=== PATIENT | male | born 1950 | race African-American/Black ===

== ENCOUNTER 2019-03-18 09:12 | Inpatient (IN) ==
[2019-03-18] MEDS ORDERED: DICYCLOMINE 20 MG/2 ML AMP IM ONE (09:28)
[2019-03-18] MEDS ORDERED: ONDANSETRON 4 MG/2 ML VIAL IV STA (09:28)
[2019-03-18 10:11] LABS: Basophils # 0.1 10*3/uL (0.0-0.2); Basophils % 1.2 % (0.0-0.8); Eosinophils # 0.3 10*3/uL (0.0-0.87); Eosinophils % 4.9 % (0.00-10.9); Hematocrit 41.6 VOL% (42.0-52.0); Hemoglobin 14.8 GM/DL (14.0-18.0); Immature Granulocytes % 0.2 %; Immature Granulocytes Absolute 0.01 #; Lymphocytes # 2.1 10*3/uL (1.4-4.0); Lymphocytes % 35.1 % (21.2-54.2); Mean Corpuscular HGB Conc 35.6 GM/DL (32-36); Mean Corpuscular Volume 90.8 FL (87-102); Mean Platelet Volume 8.4 FL (9.6-12.0); Monocytes % 9.9 % (1.7-12.7); Neutrophils % 48.7 % (38.7-73.9); Platelet Count 246 T/CUMM (130-400); Red Blood Count 4.58 MC/CUMM (3.8-5.5); Red Cell Distribution Width 12.5 % (9.3-17.3)
[2019-03-18 10:21] LABS: INR 0.9; PT Patient Result 10.3 SECS (9.6-12.2); Partial Thromboplastin Time 29.3 SECS (20.8-36.0)
[2019-03-18 10:43] LABS: Alanine Aminotransferase 20 U/L (16-61); Albumin 3.6 G/DL (3.4-5.0); Alkaline Phosphatase 101 U/L (45-117); Aspartate Amino Transferase 13 U/L (0-37); Blood Urea Nitrogen 10 MG/DL (7-18); Calcium 8.8 MG/DL (8.5-10.1); Estimated Glom Filtration Rate 87 ML/MIN; Glucose 107 MG/DL (74-106); Osmolality,Calculated 277.4 MOS/KG (273-304); Total Protein 7.1 G/DL (6.4-8.3); Troponin I < 0.015 NG/ML (0.00-0.045)
[2019-03-18] MEDS ORDERED: ONDANSETRON 4 MG/2 ML VIAL IV PRN (11:40)
[2019-03-18] MEDS ORDERED: ACETAMINOPHEN 500 MG TABLET PO PRN (11:40)
[2019-03-18] MEDS ORDERED: ALUM/MAG/SIMETH/LIDO VISC 1:1 30 ML BOTTLE PO PRN (13:11)
[2019-03-18] MEDS: PANTOPRAZOLE 40 MG TABLET PO SCH (20:30)
[2019-03-19 05:31] LABS: Basophils # 0.1 10*3/uL (0.0-0.2); Eosinophils # 0.3 10*3/uL (0.0-0.87); Eosinophils % 5.9 % (0.00-10.9); Hematocrit 42.1 VOL% (42.0-52.0); Hemoglobin 14.7 GM/DL (14.0-18.0); Immature Granulocytes % 0.2 %; Immature Granulocytes Absolute 0.01 #; Lymphocytes # 2.1 10*3/uL (1.4-4.0); Lymphocytes % 42.5 % (21.2-54.2); Mean Corpuscular HGB Conc 34.9 GM/DL (32-36); Mean Corpuscular Volume 91.9 FL (87-102); Mean Platelet Volume 8.7 FL (9.6-12.0); Monocytes % 10.4 % (1.7-12.7); Platelet Count 256 T/CUMM (130-400); Red Blood Count 4.58 MC/CUMM (3.8-5.5); Red Cell Distribution Width 12.4 % (9.3-17.3); White Blood Count 4.9 T/CUMM (4-12)
[2019-03-19 05:52] LABS: Calcium 8.7 MG/DL (8.5-10.1); Osmolality,Calculated 275.7 MOS/KG (273-304)
[2019-03-19] MEDS: PANTOPRAZOLE 40 MG TABLET PO SCH (08:47)
[2019-03-19] MEDS ORDERED: PANTOPRAZOLE 40 MG TABLET PO SCH (09:00)
[2019-03-19] MEDS ORDERED: amLODIPine 5 MG TABLET PO SCH ×2 (09:00)
[2019-03-19] MEDS ORDERED: ASPIRIN CHEW 81 MG TABLET PO SCH (09:00)
[2019-03-19 10:42] LABS: Risk Ratio 6.94; VLDL CHOLESTEROL 46.8 MG/DL
[2019-03-19] MEDS ORDERED: BISACODYL 5 MG TABLET PO PRN (11:53)
[2019-03-19 13:45] LABS: Apearance,Urine CLEAR (Clear); Bilirubin,Urine Negative (Negative); Blood, Urine Negative (Negative); Glucose,Urine (UA) Negative (Negative); Ketones,Urine Negative (Negative); Nitrite,Urine Negative (Negative); Protein,Urine Negative; RBC,Urine <1 /HPF (0-4); Urine Color Colorless (Yellow); Urine Specific Gravity 1.002 (1.001-1.035); Urine Urobilinogen < 2.0 EU/DL (0.2-1.0); WBC,Urine <1 /HPF (0-6)
[2019-03-19] MEDS: amLODIPine 5 MG TABLET PO SCH (14:26)
[2019-03-19] MEDS: ASPIRIN CHEW 81 MG TABLET PO SCH (14:26)
[2019-03-20 06:05] LABS: Basophils % 0.8 % (0.0-0.8); Eosinophils # 0.3 10*3/uL (0.0-0.87); Eosinophils % 4.8 % (0.00-10.9); Hematocrit 39.4 VOL% (42.0-52.0); Hemoglobin 13.8 GM/DL (14.0-18.0); Immature Granulocytes % 0.2 %; Immature Granulocytes Absolute 0.01 #; Lymphocytes # 2.3 10*3/uL (1.4-4.0); Lymphocytes % 45.2 % (21.2-54.2); Mean Corpuscular Volume 91.8 FL (87-102); Mean Platelet Volume 8.7 FL (9.6-12.0); Monocytes % 10.1 % (1.7-12.7); Neutrophils % 38.9 % (38.7-73.9); Platelet Count 244 T/CUMM (130-400); Red Blood Count 4.29 MC/CUMM (3.8-5.5); Red Cell Distribution Width 12.4 % (9.3-17.3); White Blood Count 5.2 T/CUMM (4-12)
[2019-03-20 06:29] LABS: Albumin 3.2 G/DL (3.4-5.0); Bilirubin,Total 1.1 MG/DL (0.2-1.0); Calcium 8.5 MG/DL (8.5-10.1); Osmolality,Calculated 281.3 MOS/KG (273-304); Total Protein 6.5 G/DL (6.4-8.3)
[2019-03-20] MEDS: amLODIPine 5 MG TABLET PO SCH (09:38)
[2019-03-20] MEDS: ASPIRIN CHEW 81 MG TABLET PO SCH (09:38)
[2019-03-20] MEDS: PANTOPRAZOLE 40 MG TABLET PO SCH ×2 (09:40→21:17)
[2019-03-21 05:35] LABS: Basophils % 0.8 % (0.0-0.8); Eosinophils # 0.3 10*3/uL (0.0-0.87); Eosinophils % 5.3 % (0.00-10.9); Hematocrit 40.1 VOL% (42.0-52.0); Hemoglobin 14.2 GM/DL (14.0-18.0); Immature Granulocytes % 0.2 %; Immature Granulocytes Absolute 0.01 #; Lymphocytes # 1.8 10*3/uL (1.4-4.0); Lymphocytes % 33.7 % (21.2-54.2); Mean Corpuscular HGB Conc 35.4 GM/DL (32-36); Mean Corpuscular Volume 91.3 FL (87-102); Mean Platelet Volume 8.7 FL (9.6-12.0); Monocytes % 10.9 % (1.7-12.7); Neutrophils % 49.1 % (38.7-73.9); Platelet Count 241 T/CUMM (130-400); Red Blood Count 4.39 MC/CUMM (3.8-5.5); Red Cell Distribution Width 12.5 % (9.3-17.3); White Blood Count 5.3 T/CUMM (4-12)
[2019-03-21] MEDS: amLODIPine 5 MG TABLET PO SCH (08:14)
[2019-03-21] MEDS: ASPIRIN CHEW 81 MG TABLET PO SCH (08:14)
[2019-03-21] MEDS: PANTOPRAZOLE 40 MG TABLET PO SCH ×2 (08:14→20:15)
[2019-03-21] MEDS ORDERED: amLODIPine 5 MG TABLET PO SCH (08:20)
[2019-03-22] MEDS ORDERED: amLODIPine 5 MG TABLET PO SCH (03:26)
[2019-03-22 08:22] VITALS: BP 144/85
[2019-03-22] MEDS: PANTOPRAZOLE 40 MG TABLET PO SCH (08:59)
[2019-03-22] MEDS: ASPIRIN CHEW 81 MG TABLET PO SCH (09:05)
== END 2019-03-22 11:58 | disposition home or self-care (01) | DRG 437 ==
LOC: N.EDINP 09:12 → N.ED 09:12 → N.EDINP 12:27 → N.2W 12:46 → N.3E 15:15
PROVIDERS: ADMIT Internal Medicine; ATTEND Internal Medicine

== ENCOUNTER 2020-06-24 08:25 | Inpatient (IN) ==
[2020-06-24] MEDS ORDERED: SODIUM CHLORIDE 0.9% 1,000 ML IV STA (09:08)
[2020-06-24] MEDS ORDERED: ACETAMINOPHEN 500 MG TABLET PO STA (09:39)
[2020-06-24 09:53] LABS: Basophils % 0.4 % (0.0-0.8); Eosinophils # 0.1 10*3/uL (0.0-0.87); Eosinophils % 1.2 % (0.00-10.9); Hematocrit 23.7 VOL% (42.0-52.0); Hemoglobin 8.5 GM/DL (14.0-18.0); Immature Granulocytes % 0.4 %; Immature Granulocytes Absolute 0.02 #; Lymphocytes # 0.2 10*3/uL (1.4-4.0); Lymphocytes % 4.2 % (21.2-54.2); Mean Corpuscular HGB Conc 35.9 GM/DL (32-36); Mean Corpuscular Volume 90.5 FL (87-102); Mean Platelet Volume 11.2 FL (9.6-12.0); Monocytes % 10.5 % (1.7-12.7); Neutrophils % 83.3 % (38.7-73.9); Platelet Count 116 T/CUMM (130-400); Red Blood Count 2.62 MC/CUMM (3.8-5.5); Red Cell Distribution Width 16.8 % (9.3-17.3)
[2020-06-24 10:11] LABS: Albumin 2.8 G/DL (3.4-5.0); Bilirubin,Total 1.4 MG/DL (0.2-1.0); Calcium 8.6 MG/DL (8.5-10.1); Osmolality,Calculated 286.1 MOS/KG (273-304); Potassium 3.7 MMOL/L (3.5-5.1); Total Protein 6.1 G/DL (6.4-8.2)
[2020-06-24] MEDS ORDERED: ONDANSETRON 4 MG/2 ML VIAL IV ONE (10:18)
[2020-06-24] MEDS ORDERED: HYDROmorphone 2 MG/1 ML VIAL IV STA (10:18)
[2020-06-24] MEDS ORDERED: PIPERACILLIN/TAZOBACTAM 3,375 MG in SODIUM CHLORIDE 0.9% 100 ML IV STA ×2 (10:40→10:50)
[2020-06-24 11:19] LABS: INR 1.4; PT Patient Result 15.4 SECS (9.8-11.9)
[2020-06-24] MEDS ORDERED: ENOXAPARIN 30 MG/0.3 ML SYRINGE SUBCUT STA (11:46)
[2020-06-24] MEDS ORDERED: ONDANSETRON 4 MG/2 ML VIAL IV PRN (11:50)
[2020-06-24] MEDS ORDERED: ENOXAPARIN 100 MG/ML SYRINGE SUBCUT SCH (12:00)
[2020-06-24] MEDS ORDERED: PIPERACILLIN/TAZOBACTAM 3,375 MG in SODIUM CHLORIDE 0.9% 50 ML IV SCH (12:00)
[2020-06-24] MEDS ORDERED: ENOXAPARIN 60 MG/0.6 ML SYRINGE ONE (12:06)
[2020-06-24] MEDS ORDERED: PIPERACILLIN/TAZOBACTAM 3.375 MG in SODIUM CHLORIDE 0.9% 100 ML IV ONE (12:30)
[2020-06-24] MEDS: SODIUM CHLORIDE 0.9% 1,000 ML IV SCH (14:09)
[2020-06-24] MEDS: HYDROmorphone 2 MG/1 ML VIAL IV PRN ×2 (14:45→19:30)
[2020-06-24] MEDS: DOCUSATE SODIUM 100 MG CAPSULE PO SCH (20:36)
[2020-06-24] MEDS: ENOXAPARIN 60 MG/0.6 ML SYRINGE SUBCUT SCH (20:37)
[2020-06-24] MEDS: PIPERACILLIN/TAZOBACTAM 3,375 MG in SODIUM CHLORIDE 0.9% 100 ML IV SCH (20:38)
[2020-06-24] MEDS: PIPERACILLIN/TAZOBACTAM 3.375 MG in SODIUM CHLORIDE 0.9% 100 ML IV SCH ×2 (20:45→21:08)
[2020-06-24 22:33] LABS: Bilirubin,Urine Negative (Negative); Blood, Urine Negative (Negative); Glucose,Urine (UA) Negative (Negative); Ketones,Urine Negative (Negative); Nitrite,Urine Negative (Negative); Protein,Urine 30 MG/DL; RBC,Urine 1 /HPF (0-4); Urine Appearance CLEAR (Clear); Urine Color Yellow (Yellow); Urine Urobilinogen < 2.0 EU/DL (0.2-1.0)
[2020-06-24 22:40] LABS: Urine Specific Gravity 1.012 (1.001-1.035)
[2020-06-24] MEDS ORDERED: oxyCODONE IR 5 MG TABLET PO PRN (22:53)
[2020-06-24] MEDS ORDERED: ALBUTEROL/IPRATROPIUM 3 ML NEB RESP TX PRN (22:56)
[2020-06-25] MEDS: HYDROmorphone 2 MG/1 ML VIAL IV PRN ×4 (01:29→15:57)
[2020-06-25] MEDS: PIPERACILLIN/TAZOBACTAM 3,375 MG in SODIUM CHLORIDE 0.9% 100 ML IV SCH ×3 (06:18→22:32)
[2020-06-25 07:13] LABS: Basophils % 0.2 % (0.0-0.8); Eosinophils # 0.1 10*3/uL (0.0-0.87); Eosinophils % 0.9 % (0.00-10.9); Hematocrit 24.9 VOL% (42.0-52.0); Hemoglobin 8.5 GM/DL (14.0-18.0); Immature Granulocytes % 0.7 %; Immature Granulocytes Absolute 0.04 #; Lymphocytes # 0.3 10*3/uL (1.4-4.0); Lymphocytes % 5.4 % (21.2-54.2); Mean Corpuscular HGB Conc 34.1 GM/DL (32-36); Mean Corpuscular Volume 90.9 FL (87-102); Mean Platelet Volume 10.8 FL (9.6-12.0); Neutrophils % 81.8 % (38.7-73.9); Platelet Count 143 T/CUMM (130-400); Red Blood Count 2.74 MC/CUMM (3.8-5.5); Red Cell Distribution Width 16.9 % (9.3-17.3); White Blood Count 5.4 T/CUMM (4-12)
[2020-06-25 07:35] LABS: Eosinophils 2 % (0-10); Hypochromasia 1+; Lymphocytes 2 % (20-55); Microcytosis 1+; Ovalocytes Slight; Platelet Estimate Adequate; Segmented Neutrophils 85 % (50-85); Total Cells Counted 100
[2020-06-25] MEDS: PANTOPRAZOLE 40 MG TABLET PO SCH (08:52)
[2020-06-25] MEDS: DOCUSATE SODIUM 100 MG CAPSULE PO SCH ×2 (08:52→21:09)
[2020-06-25] MEDS: ENOXAPARIN 60 MG/0.6 ML SYRINGE SUBCUT SCH ×2 (09:50→21:09)
[2020-06-25] MEDS: amLODIPine 5 MG TABLET PO SCH ×2 (11:53→21:09)
[2020-06-25] MEDS ORDERED: HEPARIN LOCK FLUSH 500 UNIT/5 ML SYRINGE IV PRN (16:11)
[2020-06-25] MEDS ORDERED: POLYETHYLENE GLYCOL POWDER 17 GM PACK PO PRN (17:30)
[2020-06-25] MEDS ORDERED: oxyCODONE IR 5 MG TABLET PO SCH ×2 (17:30→18:00)
[2020-06-25] MEDS ORDERED: MEGESTROL 400 MG/10 ML UDCUP PO PRN (17:30)
[2020-06-25] MEDS ORDERED: BISACODYL 5 MG TABLET PO PRN (17:30)
[2020-06-25] MEDS: ALBUTEROL/IPRATROPIUM 3 ML NEB RESP TX SCH ×2 (17:40→19:25)
[2020-06-25] MEDS: ACETAMINOPHEN 325 MG TABLET PO PRN (18:36)
[2020-06-25] MEDS: oxyCODONE ER 10 MG TABLET PO SCH ×2 (18:37→23:59)
[2020-06-25] MEDS: ACETAMINOPHEN 500 MG TABLET PO SCH (18:41)
[2020-06-25] MEDS: LIDOCAINE 5% PATCH TRANSDERM SCH (21:10)
[2020-06-26] MEDS: ACETAMINOPHEN 325 MG TABLET PO PRN
[2020-06-26] MEDS: ACETAMINOPHEN 500 MG TABLET PO SCH ×3 (00:03→12:06)
[2020-06-26] MEDS: ALBUTEROL/IPRATROPIUM 3 ML NEB RESP TX SCH ×4 (01:00→20:32)
[2020-06-26] MEDS: SODIUM CHLORIDE 0.9% 1,000 ML IV SCH ×3 (04:44→17:47)
[2020-06-26] MEDS: HYDROmorphone 2 MG/1 ML VIAL IV PRN ×5 (05:40→21:40)
[2020-06-26] MEDS: PIPERACILLIN/TAZOBACTAM 3,375 MG in SODIUM CHLORIDE 0.9% 100 ML IV SCH ×3 (05:40→20:18)
[2020-06-26] MEDS: oxyCODONE ER 10 MG TABLET PO SCH ×2 (05:49→12:05)
[2020-06-26] MEDS: DOCUSATE SODIUM 100 MG CAPSULE PO SCH ×2 (08:16→20:17)
[2020-06-26] MEDS: amLODIPine 5 MG TABLET PO SCH ×2 (08:16→20:18)
[2020-06-26] MEDS: PANTOPRAZOLE 40 MG TABLET PO SCH (08:16)
[2020-06-26] MEDS: APIXABAN 2.5 MG TABLET PO SCH ×2 (08:56→20:18)
[2020-06-26] MEDS: LIDOCAINE 5% PATCH TRANSDERM SCH (09:44)
[2020-06-26] MEDS ORDERED: oxyCODONE ER 10 MG TABLET PO PRN (17:25)
[2020-06-26] MEDS ORDERED: ACETAMINOPHEN 500 MG TABLET PO PRN (17:26)
[2020-06-26] MEDS: METOPROLOL TARTRATE 25 MG TABLET PO SCH (20:18)
[2020-06-27] MEDS: ALBUTEROL/IPRATROPIUM 3 ML NEB RESP TX SCH ×4 (01:00→19:08)
[2020-06-27] MEDS: PIPERACILLIN/TAZOBACTAM 3,375 MG in SODIUM CHLORIDE 0.9% 100 ML IV SCH ×2 (05:55→13:16)
[2020-06-27] MEDS: HYDROmorphone 2 MG/1 ML VIAL IV PRN ×3 (05:55→13:48)
[2020-06-27] MEDS: SODIUM CHLORIDE 0.9% 1,000 ML IV SCH ×2 (05:56→22:59)
[2020-06-27] MEDS ORDERED: PROMETHAZINE INJ 25 MG in SODIUM CHLORIDE 0.9% 50 ML IV PRN (08:32)
[2020-06-27] MEDS ORDERED: ALPRAZolam 0.25 MG TABLET PO PRN (08:32)
[2020-06-27] MEDS ORDERED: chlorproMAZINE INJ 50 MG in SODIUM CHLORIDE 0.9% 100 ML IV PRN (08:32)
[2020-06-27] MEDS ORDERED: LACTULOSE 20 GM/30 ML UDCUP PO PRN (08:32)
[2020-06-27] MEDS ORDERED: MAGNESIUM HYDROXIDE SUSP 30 ML UDCUP PO PRN (08:32)
[2020-06-27] MEDS ORDERED: traMADol 50 MG TABLET PO PRN (08:32)
[2020-06-27] MEDS ORDERED: guaiFENesin 200 MG/10 ML UDCUP PO PRN (08:32)
[2020-06-27] MEDS ORDERED: diphenhydrAMINE CAP 25 MG CAPSULE PO PRN (08:32)
[2020-06-27] MEDS ORDERED: MYLANTA/LIDO VISC 2:1 300 ML BOTTLE SWISH/SWAL PRN (08:32)
[2020-06-27] MEDS ORDERED: ACETAMINOPHEN 325 MG TABLET PO PRN (08:32)
[2020-06-27] MEDS ORDERED: chlorproMAZINE INJ 25 MG in SODIUM CHLORIDE 0.9% 100 ML IV PRN (08:32)
[2020-06-27] MEDS ORDERED: MYLANTA/LIDO VISC 2:1 300 ML BOTTLE SWISH/SPIT PRN (08:32)
[2020-06-27] MEDS ORDERED: LOPERAMIDE 2 MG CAPSULE PO PRN (08:32)
[2020-06-27] MEDS ORDERED: TEMAZEPAM 7.5 MG CAPSULE PO PRN (08:32)
[2020-06-27] MEDS: APIXABAN 2.5 MG TABLET PO SCH ×3 (09:19→21:54)
[2020-06-27] MEDS: amLODIPine 5 MG TABLET PO SCH ×3 (09:19→21:54)
[2020-06-27] MEDS: DOCUSATE SODIUM 100 MG CAPSULE PO SCH ×3 (09:19→21:53)
[2020-06-27] MEDS: ALUMINUM/MAGNES/SIMETH MAX STR 30 ML UDCUP PO PRN (09:19)
[2020-06-27] MEDS: METOPROLOL TARTRATE 25 MG TABLET PO SCH ×3 (09:19→21:54)
[2020-06-27] MEDS: PANTOPRAZOLE 40 MG TABLET PO SCH (09:19)
[2020-06-27] MEDS: ONDANSETRON 4 MG/2 ML VIAL IV PRN (11:22)
[2020-06-27] MEDS: PROMETHAZINE INJ 12.5 MG in SODIUM CHLORIDE 0.9% 50 ML IV SCH (21:14)
[2020-06-28] MEDS: ALBUTEROL/IPRATROPIUM 3 ML NEB RESP TX SCH ×4 (00:22→21:23)
[2020-06-28] MEDS: HYDROmorphone 2 MG/1 ML VIAL IV PRN ×3 (04:16→20:45)
[2020-06-28] MEDS: PROMETHAZINE INJ 12.5 MG in SODIUM CHLORIDE 0.9% 50 ML IV SCH ×3 (04:18→20:32)
[2020-06-28] MEDS: PANTOPRAZOLE 40 MG TABLET PO SCH (09:07)
[2020-06-28] MEDS: APIXABAN 2.5 MG TABLET PO SCH ×2 (09:07→20:44)
[2020-06-28] MEDS: amLODIPine 5 MG TABLET PO SCH ×2 (09:07→20:44)
[2020-06-28] MEDS: METOPROLOL TARTRATE 25 MG TABLET PO SCH ×2 (09:07→20:44)
[2020-06-28] MEDS: DOCUSATE SODIUM 100 MG CAPSULE PO SCH ×2 (09:07→20:44)
[2020-06-28] MEDS: ALUMINUM/MAGNES/SIMETH MAX STR 30 ML UDCUP PO PRN (14:17)
[2020-06-28] MEDS: ONDANSETRON 4 MG/2 ML VIAL IV PRN (17:46)
[2020-06-28] MEDS: SODIUM CHLORIDE 0.9% 1,000 ML IV SCH (18:26)
[2020-06-28] MEDS ORDERED: DOCUSATE SODIUM 100 MG CAPSULE PO PRN (21:06)
[2020-06-28] MEDS ORDERED: ALBUTEROL/IPRATROPIUM 3 ML NEB RESP TX PRN (21:40)
[2020-06-29] MEDS: HYDROmorphone 2 MG/1 ML VIAL IV PRN ×5 (02:59→20:21)
[2020-06-29] MEDS: PROMETHAZINE INJ 12.5 MG in SODIUM CHLORIDE 0.9% 50 ML IV SCH ×3 (04:36→22:27)
[2020-06-29] MEDS: METOPROLOL TARTRATE 25 MG TABLET PO SCH (08:56)
[2020-06-29] MEDS: APIXABAN 2.5 MG TABLET PO SCH (08:56)
[2020-06-29] MEDS: PANTOPRAZOLE 40 MG TABLET PO SCH (08:56)
[2020-06-29] MEDS: LIDOCAINE 5% PATCH TRANSDERM PRN (17:00)
[2020-06-29] MEDS: SODIUM CHLORIDE 0.9% 1,000 ML IV SCH (18:33)
[2020-06-30] MEDS: PROMETHAZINE INJ 12.5 MG in SODIUM CHLORIDE 0.9% 50 ML IV SCH ×3 (04:05→21:11)
[2020-06-30] MEDS: HYDROmorphone 2 MG/1 ML VIAL IV PRN ×4 (04:59→22:37)
[2020-06-30] MEDS ORDERED: KETOROLAC 15 MG/1 ML VIAL IV ONE (09:44)
[2020-06-30] MEDS: SODIUM CHLORIDE 0.9% 1,000 ML IV SCH (11:41)
[2020-06-30] MEDS: LOPERAMIDE 2 MG CAPSULE PO PRN (19:38)
[2020-07-01] MEDS: SODIUM CHLORIDE 0.9% 1,000 ML IV SCH ×2 (03:57→19:59)
[2020-07-01] MEDS: HYDROmorphone 2 MG/1 ML VIAL IV PRN ×6 (04:14→19:52)
[2020-07-01] MEDS: PROMETHAZINE INJ 12.5 MG in SODIUM CHLORIDE 0.9% 50 ML IV SCH ×3 (05:16→19:59)
[2020-07-01] MEDS: LOPERAMIDE 2 MG CAPSULE PO PRN (11:33)
[2020-07-02] MEDS: HYDROmorphone 2 MG/1 ML VIAL IV PRN ×5 (00:09→17:51)
[2020-07-02] MEDS: PROMETHAZINE INJ 12.5 MG in SODIUM CHLORIDE 0.9% 50 ML IV SCH ×2 (04:00→16:44)
[2020-07-02] MEDS: SODIUM CHLORIDE 0.9% 1,000 ML IV SCH (15:35)
[2020-07-03] MEDS: HYDROmorphone 2 MG/1 ML VIAL IV PRN ×7 (00:33→23:53)
[2020-07-03] MEDS: SODIUM CHLORIDE 0.9% 1,000 ML IV SCH ×2 (08:15→22:07)
[2020-07-03] MEDS: LIDOCAINE 5% PATCH TRANSDERM PRN (16:32)
[2020-07-04] MEDS ORDERED: MORPHINE 4 MG/1 ML VIAL IV ONE (01:16)
[2020-07-04] MEDS: HYDROmorphone 2 MG/1 ML VIAL IV PRN ×4 (01:40→19:20)
[2020-07-04] MEDS: SODIUM CHLORIDE 0.9% 1,000 ML IV SCH ×2 (14:50→14:55)
[2020-07-05] MEDS: HYDROmorphone 2 MG/1 ML VIAL IV PRN (03:13)
[2020-07-05] MEDS ORDERED: NALOXONE 0.4 MG/ML VIAL IV PRN (09:47)
[2020-07-05] MEDS: HYDROmorphone PCA 30 MG/30 ML SYRINGE IV SCH (10:50)
[2020-07-05] MEDS: SODIUM CHLORIDE 0.9% 1,000 ML IV SCH (10:52)
[2020-07-06] MEDS: SODIUM CHLORIDE 0.9% 1,000 ML IV SCH ×2 (01:51→17:18)
[2020-07-06] MEDS: HYDROmorphone PCA 30 MG/30 ML SYRINGE IV SCH (14:09)
[2020-07-07] MEDS: SODIUM CHLORIDE 0.9% 1,000 ML IV SCH (10:51)
[2020-07-07] MEDS: HYDROmorphone PCA 30 MG/30 ML SYRINGE IV SCH (17:10)
[2020-07-08] MEDS: SODIUM CHLORIDE 0.9% 1,000 ML IV SCH ×2 (02:26→19:27)
[2020-07-08] MEDS: HYDROmorphone PCA 30 MG/30 ML SYRINGE IV SCH (18:54)
[2020-07-09] MEDS: LORazepam 2 MG/1 ML VIAL IV PRN (11:00)
[2020-07-09] MEDS: HYDROmorphone PCA 30 MG/30 ML SYRINGE IV SCH (11:00)
[2020-07-09] MEDS ORDERED: LORazepam 2 MG/1 ML VIAL ONE (11:01)
[2020-07-09] MEDS: SODIUM CHLORIDE 0.9% 1,000 ML IV SCH (14:24)
[2020-07-10] MEDS: SODIUM CHLORIDE 0.9% 1,000 ML IV SCH (11:07)
[2020-07-10 14:19] VITALS: BP 137/79
[2020-07-10] MEDS: HYDROmorphone PCA 30 MG/30 ML SYRINGE IV SCH (16:48)
[2020-07-10] MEDS: LORazepam 2 MG/1 ML VIAL IV PRN (17:45)
[2020-07-10] MEDS ORDERED: MORPHINE 4 MG/1 ML VIAL IV PRN (18:08)
== END 2020-07-10 22:45 | disposition expired | DRG 435 ==
LOC: N.ED 08:25 → N.EDINP 11:50 → N.4E 12:10
PROVIDERS: ADMIT Internal Medicine; ATTEND Internal Medicine